=== PATIENT | male | born 1945 | race Caucasian/White ===

== ENCOUNTER → 2016-10-27 | Outpatient (CLI) | payer MEDICARE | LOC: HEART 5 10:02 | DX: Z72.0 Tobacco use (principal) | CPT/HCPCS: 94060; 94729 ==

== ENCOUNTER → 2017-04-27 | Outpatient (CLI) | payer MEDICARE | LOC: CT 10:40 | DX: Z87.891 Personal history of nicotine dependence (principal) | CPT/HCPCS: G0297 ==